=== PATIENT | male | born 1985 | race Caucasian/White ===

== ENCOUNTER 2021-03-01 12:59 | Emergency (ER) | payer OTHER, SELFPAY ==
[2021-03-01 13:10] VITALS: BP 139/96; PULSE 102; RESP 16; TEMP 36.5; O2SAT 100
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
== END 2021-03-01 14:54 | disposition home or self-care (01) ==
PROVIDERS: Emergency Provider Nurse Practitioner Family
DX: H61.23 Impacted cerumen, bilateral (principal); J45.909 Unspecified asthma, uncomplicated
CPT/HCPCS: 69209; 99213; A9270; G0463

== ENCOUNTER 2021-05-22 10:03 | Emergency (ER) | payer OTHER, SELFPAY ==
--- NOTE | 2021-05-22 10:07 | ED.DENTAL ---
HPI - Dental/Oral General Chief complaint: Dental/Oral Stated complaint: dental pressure Time Seen by Provider: 05/22/21 10:28 Source: patient and RN notes reviewed Mode of arrival: ambulatory Limitations: no limitations History of Present Illness HPI Narrative: 36-year-old male presents with concern for left lower dental pain. Reports chronic problems with his teeth, reports he has an appointment with a dentist coming soon. Reports he has been taking ibuprofen 800 mg twice a day that helps relieve the pain. Reports broken tooth, rotten tooth. He denies trouble swallowing, trouble breathing, fever, body aches. MD Complaint: tooth pain Related Data Allergies Allergy/AdvReac Type Severity Reaction Status Date / Time No Known Allergies Allergy Unverified 05/22/21 10:10 Review of Systems Review of Systems: CONSTITUTIONAL: Denies malaise, chills, sweats, or fever. EYES: Denies visual changes, redness, or discharge. ENT: Denies swollen tongue, swollen lips, trouble swallowing. Reports left lower dental pain, CARDIOVASCULAR: Denies chest pain, palpitations, or edema. RESPIRATORY: Denies dyspnea. MUSCULOSKELETAL: Denies myalgia. NEUROLOGIC: Denies headache. All systems reviewed & are unremarkable except as noted in HPI and below PMFSH Past Medical History Medical History (Updated 05/22/21 @ 10:30 by Ondina Smith NP) Asthma Surgical History Surgical History (Updated 03/01/21 @ 13:30 by DEBRA Shaffer) History of orthopedic surgery Left index finger Comments At time of signature, agree with nursing past medical, surgical, social and family history. There is no relevant family history pertinent to the presenting complaint Exam Narrative: GENERAL: Well-appearing, well-nourished, and in no acute distress. HEAD: Normocephalic, atraumatic. EYES: PERRLA, sclera clear ENT: Nares clear. Mucous membranes moist. Oropharynx without edema, erythema or lesions. Tonsils not enlarged and without exudate. Broken teeth, caries noted NECK: Supple. No lymphadenopathy. CHEST: No respiratory distress. Clear to auscultation. No bony deformities, no asymmetry. Speaks in full sentences. HEART: Regular rate and rhythm. SKIN: Warm, dry, no visible rash. NEURO: Alert and oriented x3. PSYCH: Normal mood and affect Course Course Emergency Course: Patient is aware of diagnosis, understands and agrees to treatment plan. Anticipatory guidance given. Patient agrees to follow-up as directed and is aware of reasons to seek care at the emergency department. Portions of this record may have been created with voice recognition software Vital Signs Vital signs: Reviewed. Pt has been instructed to follow up with his primary care provider within the next week regarding his elevated blood pressure today. MDM - Dental/Oral MDM Narrative Medical decision making narrative: Patients pain and complaint coupled with physical findings are consistant with dentalgia. There are no focal signs of space occupying lesions that are compromising to the airway; no dysphagia, odynophagia, dysphonia, or dyspnea. No uvular deviation or soft palate edema. Patient is non-toxic appearing. The floor of the mouth is soft with no signs of Del's Angina; no induration below mandible, no neck pain. Patient is without trismus or drooling and able to swallow secretions. Patient is felt appropriate for discharge home with dental follow up. Critical Care Time Critical Care Time Critical Care Time: No Discharge Plan Discharge Clinical Impression: Toothache Patient Disposition: Home, Self-Care Condition: Stable Instructions: Acute Dental Trauma (ED) Additional Instructions: Take antibiotic as directed Avoid temperature extremes May apply heat or ice to the face Gentle brushing and flossing Alternate Tylenol and ibuprofen as needed for pain Follow-up with the dentist as soon as possible Your blood pressure was elevated above 120/80 today at E
[2021-05-22 10:11] VITALS: BP 156/89; PULSE 105; RESP 12; TEMP 36.9; O2SAT 100
== END 2021-05-22 10:38 | disposition home or self-care (01) ==
PROVIDERS: Emergency Provider Nurse Practitioner
DX: K08.89 Other specified disorders of teeth and supporting structures (principal)
CPT/HCPCS: 99213; G0463

== ENCOUNTER 2023-03-22 14:01 | Emergency (ER) | payer BC, SELFPAY ==
--- NOTE | ~2023-03-22 | XR_ITS ---
EXAMINATION: XR lumbar spine 2-3V DATE: 03/22/2023 15:19 INDICATION: Low back pain. TECHNIQUE: 3 views of lumbar spine were obtained. COMPARISON: None. FINDINGS: Bone alignment is normal. Vertebral body heights are normal. There is mildly decreased disc height at T12-L1 and L5-S1. The facet joints are unremarkable. IMPRESSION: 1. Mild lumbar spondylosis. Reviewed, dictated and finalized at location A. IMPRESSION: 1. Mild lumbar spondylosis.
[2023-03-22 14:16] VITALS: BP 155/98; PULSE 128; RESP 16; TEMP 36.8; O2SAT 100
[2023-03-22 14:17] VITALS: BP 155/98; PULSE 128; RESP 16; TEMP 36.8; O2SAT 100
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
== END 2023-03-22 15:37 | disposition home or self-care (01) ==
PROVIDERS: Emergency Provider Registered Nurse
DX: S39.012A Strain of muscle, fascia and tendon of lower back, initial encounter (principal); X50.0XXA Overexertion from strenuous movement or load, initial encounter; J45.909 Unspecified asthma, uncomplicated; F17.210 Nicotine dependence, cigarettes, uncomplicated
CPT/HCPCS: 72100; 99213; G0463

== ENCOUNTER 2023-10-19 08:12 | Emergency (ER) | payer BC, SELFPAY ==
--- NOTE | 2023-10-19 08:15 | ED_ITS ---
HPI - Skin/Abscess/Foreign Bdy General Stated complaint: Abscess Related Data Allergies Allergy/AdvReac Type Severity Reaction Status Date / Time No Known Allergies Allergy Unverified 03/22/23 14:17 [facility] Past Medical History Medical History Asthma Surgical History Surgical History History of orthopedic surgery Left index finger Social History Social History Smoking status: Current every day smoker Tobacco type: cigarettes Alcohol intake: current Alcohol use details: social Substance use type: does not use Gender identity (if verbalized by the patient): Male Discharge Plan Discharge Prescriptions: No Action cyclobenzaprine 10 mg tablet 10 mg PO TID PRN (Reason: muscle spasm) Qty: 14 0RF Rx Instructions: may not drive while taking prednisone 20 mg tablet 20 mg PO BID Qty: 10 0RF Rx Instructions: take with food Follow-up/Referrals: PHYSICIAN,FILLING OPERATOR [Primary Care Provider] -
[2023-10-19 08:19] VITALS: BP 148/90; PULSE 108; RESP 16; TEMP 37.1; O2SAT 100
--- NOTE | 2023-10-19 08:22 | ED.DENTAL ---
HPI - Dental/Oral General Chief complaint: Dental/Oral Stated complaint: Abscess Time Seen by Provider: 10/19/23 08:23 Mode of arrival: ambulatory Limitations: no limitations History of Present Illness HPI Narrative: 38-year-old male presents concern for dental abscess. Reports he has problems with his teeth, he has been seeing a dentist, he has plans for dental work. He reports he noticed some pressure yesterday and had some facial swelling today and the left cheek. He denies fever, headache, trouble swallowing. He has been using saline rinses. MD Complaint: tooth pain Related Data Allergies Allergy/AdvReac Type Severity Reaction Status Date / Time No Known Allergies Allergy Unverified 10/19/23 08:28 Review of Systems Review of Systems: CONSTITUTIONAL: Denies malaise, chills, sweats, or fever. EYES: Denies visual changes ENT: Denies rhinorrhea, congestion, sinus pain, otalgia or sore throat. Reports left upper dental pain and pressure CARDIOVASCULAR: Denies chest pain, palpitations RESPIRATORY: Denies cough or dyspnea. SKIN: Denies rash or itching. MUSCULOSKELETAL: Denies myalgia. NEUROLOGIC: Denies numbness, weakness, or headache. All systems reviewed & are unremarkable except as noted in HPI and below PMFSH Past Medical History Medical History Asthma Surgical History Surgical History History of orthopedic surgery Left index finger Social History Social History Smoking status: Current every day smoker Tobacco type: cigarettes Alcohol intake: current Alcohol use details: social Substance use type: does not use Gender identity (if verbalized by the patient): Male Comments At time of signature, agree with nursing past medical, surgical, social and family history. There is no relevant family history pertinent to the presenting complaint Exam Narrative: GENERAL: Well-appearing, well-nourished, and in no acute distress. HEAD: Normocephalic, atraumatic. EYES: PERRLA, sclera clear ENT: Nares clear, turbinates pink, no rhinorrhea or epistaxis. Mucous membranes moist. TM pearly marks with sharp light reflex bilaterally; no tragal tenderness. Oropharynx without erythema or lesions. Tonsils not enlarged and without exudate. Broken teeth, caries noted, left cheek swelling noted NECK: Supple. No lymphadenopathy. CHEST: No respiratory distress. Speaks in full sentences. HEART: Regular rate and rhythm. SKIN: Warm, dry, no visible rash. NEURO: Alert and oriented x3. PSYCH: Normal mood and affect Course Course Emergency Course: Patient is aware of diagnosis, understands and agrees to treatment plan. Anticipatory guidance given. Patient agrees to follow-up as directed and is aware of reasons to seek care at the emergency department. Portions of this record may have been created with voice recognition software Level of Care: Express Care Visit Vital Signs Vital signs: Vital Signs Temperature 98.8 F 10/19/23 08:19 Pulse Rate 108 H 10/19/23 08:19 Respiratory Rate 16 10/19/23 08:19 Blood Pressure 148/90 H 10/19/23 08:19 Pulse Oximetry 100 10/19/23 08:19 Temperature 98.8 F 10/19/23 08:19 Pulse Rate 108 H 10/19/23 08:19 Respiratory Rate 16 10/19/23 08:19 Blood Pressure 148/90 H 10/19/23 08:19 Pulse Oximetry 100 10/19/23 08:19 Reviewed. MDM - Dental/Oral MDM Narrative Medical decision making narrative: Patients pain and complaint coupled with physical findings are consistant with dentalgia. There are no focal signs of space occupying lesions that are compromising to the airway; no dysphagia, odynophagia, dysphonia, or dyspnea. No uvular deviation or soft palate edema. Patient is non-toxic appearing. The floor of the mouth is soft with no signs of Del's Angina; no induration below parrish
== END 2023-10-19 08:35 | disposition home or self-care (01) ==
PROVIDERS: Emergency Provider Nurse Practitioner
DX: K04.7 Periapical abscess without sinus (principal); F17.210 Nicotine dependence, cigarettes, uncomplicated
CPT/HCPCS: 99213; G0463